=== PATIENT | female | born 1935 | race Caucasian/White ===

== ENCOUNTER → 2016-11-24 | Outpatient (CLI) | payer MEDICARE ==
--- NOTE | 2016-11-24 19:44 | XR ---
EXAMINATION TYPE: XR wrist complete RT DATE OF EXAM: 11/24/2016 COMPARISON: NONE HISTORY: Pain TECHNIQUE: 4 views FINDINGS: There is a nondisplaced transverse fracture of the distal radial metaphysis. There is very slight impaction. There is no dislocation. There is moderately severe osteoarthritis at the first car pometacarpal joint. Carpal bones are intact. There is calcification of the triangular cartilage. IMPRESSION: Acute transverse fracture distal radius.
== END | disposition home or self-care (01) ==
LOC: RADXRMAIN 18:57
PROVIDERS: ATTEND Internal Medicine
DX: S52.501A Unspecified fracture of the lower end of right radius, initial encounter for closed fracture (principal)

== ENCOUNTER 2017-06-12 03:17 | Inpatient (IN) | payer MEDICARE ==
[2017-06-12] MEDS ORDERED: PANTOPRAZOLE 40 MG/10 ML VIAL IVP STA (03:24)
--- NOTE | 2017-06-12 03:27 | ED ---
General Adult HPI - General Stated complaint: GI Bleed Time Seen by Provider: 06/12/17 03:19 Source: patient, family, EMS, RN notes reviewed Mode of arrival: EMS Limitations: altered mental status (Poor historian) - History of Present Illness Initial comments: Patient is a pleasant 81-year-old female presenting to the emergency department with black coffee-ground emesis. Patient has had several episodes over the past hour. There was some blood streaks as well. Patient reportedly did have some black bowel movements earlier today. No abdominal pain. No history of similar symptoms previously. Patient does not take blood thinners. No history of significant previous alcohol use. - Related Data Home Medications Medication Instructions Recorded Confirmed Aspirin EC [Ecotrin Low Dose] 81 mg PO DAILY 04/06/14 05/26/15 Hydrochlorothiazide 25 mg PO DAILY 04/06/14 05/26/15 Levothyroxine Sodium [Synthroid] 50 mcg PO DAILY 04/06/14 05/26/15 Metoprolol Tartrate [Lopressor] 100 mg PO DAILY 04/06/14 05/26/15 Multivitamins, Thera [Multivitamin 1 tab PO DAILY 04/06/14 05/26/15 (formulary)] Omeprazole [PriLOSEC] 20 mg PO AC-BID 04/06/14 05/26/15 Simvastatin [Zocor] 20 mg PO HS 04/06/14 05/26/15 Donepezil [Aricept] 10 mg PO HS 05/26/15 05/26/15 Previous Rx's Medication Instructions Recorded Cephalexin [Keflex] 500 mg PO Q12HR #10 cap 06/02/15 traMADol HCl [Ultram] 50 mg PO Q6H PRN #30 tab 06/02/15 Allergies Allergy/AdvReac Type Severity Reaction Status Date / Time Sulfa (Sulfonamide Allergy Unknown Verified 05/26/15 12:07 Antibiotics) Childhood Review of Systems ROS Statement: Those systems with pertinent positive or pertinent negative responses have been documented in the HPI. ROS Other: All systems not noted in ROS Statement are negative. Constitutional: Denies: fever Eyes: Denies: eye pain ENT: Denies: ear pain Respiratory: Denies: cough Cardiovascular: Denies: chest pain Endocrine: Denies: fatigue Gastrointestinal: Reports: nausea, vomiting, hematemesis. Denies: abdominal pain Genitourinary: Denies: dysuria Musculoskeletal: Denies: back pain Skin: Denies: rash Neurological: Denies: weakness Past Medical History Past Medical History: Hypertension, Thyroid Disorder Additional Past Medical History / Comment(s): "short term memory loss" History of Any Multi-Drug Resistant Organisms: None Reported Past Surgical History: Bowel Resection, Breast Surgery, Hysterectomy, Joint Replacement Past Anesthesia/Blood Transfusion Reactions: No Reported Reaction Past Psychological History: No Psychological Hx Reported Smoking Status: Never smoker Past Alcohol Use History: None Reported Past Drug Use History: None Reported - Past Family History Mother Family Medical History: CVA/TIA Father Family Medical History: Myocardial Infarction ([place]) General Exam Limitations: no limitations General appearance: alert, in no apparent distress Head exam: Present: atraumatic Eye exam: Present: normal appearance, PERRL ENT exam: Present: normal oropharynx Neck exam: Present: normal inspection Respiratory exam: Present: normal lung sounds bilaterally Cardiovascular Exam: Present: regular rate, normal rhythm GI/Abdominal exam: Present: soft. Absent: tenderness Extremities exam: Present: normal inspection Neurological exam: Present: alert Psychiatric exam: Present: normal affect, normal mood Skin exam: Present: normal color Course Vital Signs 06/12/17 03:25 Temperature 97.2 F L Pulse Rate 81 Respiratory 18 Rate Blood Pressure 101/67 O2 Sat by Pulse 95 Oximetry Medical Decision Making - Medical Decision Making Patient and family updated. Case was discussed with Dr. Crenshaw, who will admit for Dr. Sonu le. Patient has previously seen Dr. Cahmberlain and she will be placed on consult. - Lab Data Result diagrams: 06/12/17 03:38 06/12/17 03:38 Lab Results 06/12/17 06/12/17 06/12/17 Range/Units 03:38 03:38 03:38 WBC 9.7 (3.8-10.6) k/uL RBC 3.39 L (3.80-5.40) m/uL Hgb 9.9 L (11.4-16.0) gm/dL Hct 32.4 L (34.0-46.0) % MCV 95.3 (80.0-100.0) fL MCH 29.1 (25.0-35.0) pg MCHC 30.5 L (31.0-37.0) g/dL RDW 13.2 (11.5-15.5) % Plt Count 318 (150-450) k/uL Neutrophils % 76 % Lymphocytes % 17 % Monocytes % 5 % Eosinophils % 1 % Basophils % 0 % Neutrophils # 7.3 (1.3-7.7) k/uL Lymphocytes # 1.7 (1.0-4.8) k/uL Monocytes # 0.5 (0-1.0) k/uL Eosinophils # 0.1 (0-0.7) k/uL Basophils # 0.0 (0-0.2) k/uL PT 12.9 H (9.0-12.0) sec INR 1.4 H (<1.2) APTT 20.4 L (22.0-30.0) sec Sodium 140 (137-145) mmol/L Potassium 5.0 (3.5-5.1) mmol/L Chloride 101 (98-107) mmol/L Carbon Dioxide 28 (22-30) mmol/L Anion Gap 11 mmol/L BUN 47 H (7-17) mg/dL Creatinine 0.91 (0.52-1.04) mg/dL Est GFR (MDRD) Af Amer >60 (>60 ml/min/1.73 sqM) Est GFR (MDRD) Non-Af 59 (>60 ml/min/1.73 sqM) Glucose 125 H (74-99) mg/dL Calcium 11.7 H (8.4-10.2) mg/dL Total Bilirubin 1.1 (0.2-1.3) mg/dL AST 35 (14-36) U/L ALT 19 (9-52) U/L Alkaline Phosphatase 108 (38-126) U/L Total Protein 5.7 L (6.3-8.2) g/dL Albumin 2.8 L (3.5-5.0) g/dL Disposition Clinical Impression: GI hemorrhage Disposition: ADMITTED IP TO THIS [facility] Referrals: Trena Brink MD [Primary Care Provider] - 1-2 days Decision Time: 05:38
[2017-06-12 03:47] LABS: Basophils % (A) 0 %; Eosinophils # (A) 0.1 k/uL (0-0.7); Eosinophils % (A) 1 %; HCT 32.4 % (34.0-46.0); HGB 9.9 gm/dL (11.4-16.0); Lymphocytes # (A) 1.7 k/uL (1.0-4.8); Lymphocytes % (A) 17 %; MCH 29.1 pg (25.0-35.0); MCHC 30.5 g/dL (31.0-37.0); MCV 95.3 fL (80.0-100.0); Mean Platelet Volume 7.5; Monocytes # (A) 0.5 k/uL (0-1.0); Monocytes % (A) 5 %; Neutrophils # (A) 7.3 k/uL (1.3-7.7); Neutrophils % (A) 76 %; Platelet Count 318 k/uL (150-450); RBC 3.39 m/uL (3.80-5.40); RDW 13.2 % (11.5-15.5); WBC 9.7 k/uL (3.8-10.6)
[2017-06-12 03:57] LABS: ALT 19 U/L (9-52); AST 35 U/L (14-36); Albumin 2.8 g/dL (3.5-5.0); Alkaline Phosphatase 108 U/L (38-126); Anion Gap 11 mmol/L; Blood Urea Nitrogen 47 mg/dL (7-17); Calcium 11.7 mg/dL (8.4-10.2); Carbon Dioxide 28 mmol/L (22-30); Chloride 101 mmol/L (98-107); Glucose 125 mg/dL (74-99); Sodium 140 mmol/L (137-145); Total Bilirubin 1.1 mg/dL (0.2-1.3); Total Protein 5.7 g/dL (6.3-8.2)
[2017-06-12 04:07] LABS: INR 1.4 (<1.2); Prothrombin Time 12.9 sec (9.0-12.0)
[2017-06-12 04:16] LABS: Partial Thromboplastin Time 20.4 sec (22.0-30.0)
[2017-06-12] MEDS ORDERED: NALOXONE 0.4 MG/ML 1 ML VIAL IV PRN (05:38)
[2017-06-12] MEDS ORDERED: PANTOPRAZOLE 40 MG/10 ML VIAL IV SCH (09:00)
--- NOTE | 2017-06-12 09:13 | P.CONS ---
History of Present Illness - Reason for Consult Consult date: 06/12/17 Coffee-ground emesis GI bleed Requesting physician: Lico Crenshaw - Chief Complaint coffee ground emesis - History of Present Illness 81-year-old female with a history of cryptogenic cirrhosis confirmed per liver biopsy when cholecystectomy was performed, pancreatitis secondary to choledocholithiasis, cholecystectomy, hypertension, exploratory laparotomy following colonoscopy, and short-term memory loss. History obtained from patient's daughter secondary to her short-term memory loss. According to daughter patient has been experiencing upper abdominal left upper quadrant pain for a few weeks. Apparently she fell a few weeks ago and since then has experienced soreness in her upper abdomen. She is scheduled to have an ultrasound of the abdomen to look at her spleen next week however early this morning around 2 AM she had increased nausea followed by a few episodes of coffee-ground emesis and black colored bowel movements. No recurrence of coffee -ground emesis or melena since admission. No history of GI bleed. Possible remote ulcer disease more than 20 years ago. No NSAIDs or alcohol. Takes a baby aspirin daily. Admission hemoglobin 9.9. MCV 95. Platelet 318. White count 9.7. INR 1.4. Total bilirubin 1.1. AST 35. ALT 19. Alkaline phosphatase 108. Calcium 11.7. Albumin 2.8. Review of Systems Constitutional: Denies fever, chills, sweats, weight gain, or loss. History of short-term memory loss. HEENT: Negative for migraines, blurred vision or loss, earaches, drainage, tinnitus, oral mucosal lesions, dysphagia, or odynophagia. CARDIAC: Hypertension. Negative for chest pain, arrhythmias, or palpitation. RESPIRATORY: Negative for shortness of breath, hemoptysis, cough, or sputum production. GI: See HPI for pertinent findings. : Negative for hematuria, urgency, frequency, polyuria, or dysuria. GYNc: Denies possibility of . Negative vaginal discharge. MUSCULOSKELETAL: Negative for muscle aches, swelling, arthritis, and arthralgias. NEUROLOGIC: Negative for stroke or TIA. ENDOCRINE: Negative for thyroid problems. SKIN: Negative for rash or itching. PSYCHIATRIC: Negative history for depression and anxiety Past Medical History Past Medical History: Hypertension, Thyroid Disorder Additional Past Medical History / Comment(s): "short term memory loss" History of Any Multi-Drug Resistant Organisms: None Reported Past Surgical History: Bowel Resection, Breast Surgery, Hysterectomy, Joint Replacement Past Anesthesia/Blood Transfusion Reactions: No Reported Reaction Past Psychological History: No Psychological Hx Reported Smoking Status: Never smoker Past Alcohol Use History: None Reported Past Drug Use History: None Reported - Past Family History Mother Family Medical History: CVA/TIA Father Family Medical History: Myocardial Infarction ([place]) Medications and Allergies Home Medications Medication Instructions Recorded Confirmed Type Aspirin EC [Ecotrin Low Dose] 81 mg PO DAILY 04/06/14 06/12/17 History Levothyroxine Sodium [Synthroid] 50 mcg PO DAILY 04/06/14 06/12/17 History Metoprolol Tartrate [Lopressor] 100 mg PO DAILY 04/06/14 06/12/17 History Multivitamins, Thera [Multivitamin 1 tab PO DAILY 04/06/14 06/12/17 History (formulary)] Donepezil [Aricept] 10 mg PO HS 05/26/15 06/12/17 History Cholecalciferol (Vitamin D3) 2,000 unit PO DAILY 06/12/17 06/12/17 History [Vitamin D3] Lisinopril [Zestril] 20 mg PO HS 06/12/17 06/12/17 History Allergies Allergy/AdvReac Type Severity Reaction Status Date / Time Sulfa (Sulfonamide Allergy Unknown Verified 06/12/17 06:45 Antibiotics) Childhood Physical Exam Vitals: Vital Signs Temp Pulse Pulse Resp BP BP Pulse Ox 06/12/17 07:00 97.5 F L 85 20 146/50 95 06/12/17 06:00 97.5 F L 75 20 112/56 97 06/12/17 05:29 97.5 F L 88 18 112/65 06/12/17 03:25 97.2 F L 81 18 101/67 95 Intake and Output 06/11/17 06/12/17 06/12/17 22:59 06:59 14:59 Other: Weight 84.822 kg General appearance: The patient is alert, oriented, in no acute distress. HET: Head is normocephalic and atraumatic. Pupils are equal and reactive. Oropharynx is clear without lesions. Neck: Supple without lymphadenopathy. Trachea midline. Heart: S1 S2. Regular rate and rhythm. Lungs: No crackles or wheezes are heard. Abdomen: Soft, tenderness in the midepigastrium and left upper quadrant, nondistended with bowel sounds. No peritoneal signs. No palpable organomegaly or masses. Extremities: Normal skin color and turgor. No cyanosis, rash, ulceration, clubbing, or edema. Radial and pedal pulses are 2/4 bilaterally. Neurological: No focal deficits. Strength and sensation are grossly intact. Results CBC & Chem 7: 06/12/17 03:38 06/12/17 03:38 Labs: Abnormal Lab Results - Last 24 Hours (Table) 06/12/17 06/12/17 06/12/17 Range/Units 03:38 03:38 03:38 RBC 3.39 L (3.80-5.40) m/uL Hgb 9.9 L (11.4-16.0) gm/dL Hct 32.4 L (34.0-46.0) % MCHC 30.5 L (31.0-37.0) g/dL PT 12.9 H (9.0-12.0) sec INR 1.4 H (<1.2) APTT 20.4 L (22.0-30.0) sec BUN 47 H (7-17) mg/dL Glucose 125 H (74-99) mg/dL Calcium 11.7 H (8.4-10.2) mg/dL Total Protein 5.7 L (6.3-8.2) g/dL Albumin 2.8 L (3.5-5.0) g/dL Assessment and Plan (1) Acute GI bleeding Narrative/Plan: 81-year-old female presents with 2 week history of midepigastric left upper quadrant abdominal pain with acute onset of coffee-ground emesis and melena that developed 2 AM this morning with underlying history of cryptogenic cirrhosis possible peptic ulcer disease possible esophageal varices. Current Visit: Yes Status: Acute Code(s): K92.2 - GASTROINTESTINAL HEMORRHAGE, UNSPECIFIED SNOMED Code(s): 18075811 (2) Coffee ground emesis Current Visit: Yes Status: Acute Code(s): K92.0 - HEMATEMESIS SNOMED Code( s): 245640720 (3) Melena Current Visit: Yes Status: Acute Code(s): K92.1 - MELENA SNOMED Code(s): 6022967 (4) Cryptogenic cirrhosis of liver Current Visit: Yes Status: Acute Code(s): K74.69 - OTHER CIRRHOSIS OF LIVER SNOMED Code(s): 61194291 (5) Coagulopathy Current Visit: Yes Status: Acute Code(s): D68.9 - COAGULATION DEFECT, UNSPECIFIED SNOMED Code(s): 54841377 (6) Anemia Current Visit: Yes Status: Acute Code(s): D64.9 - ANEMIA, UNSPECIFIED SNOMED Code(s): 324181161 (7) Acute blood loss anemia Current Visit: Yes Status: Acute Code(s): D62 - ACUTE POSTHEMORRHAGIC ANEMIA SNOMED Code(s): 261156348 Plan: 1. We'll proceed with EGD evaluation today. Nothing by mouth except medications. 2. Protonix 40 mg IV daily. 3. Hold baby aspirin. 4. CBC monitoring. 5. We'll check AFP marker as part of surveillance of known cirrhosis. 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 The patient has indicated understanding and acceptance of the risks and procedures discussed. Thank you for this kind referral and the opportunity to participate in the care of your patient. This consultation was discussed with Dr. Umana. The impression and plan of care have been directed as dictated.
[2017-06-12] MEDS ORDERED: LIDOCAINE 1% INJ 10MG/ML (20 ML MDV) ONE (14:28)
[2017-06-12] MEDS ORDERED: ONDANSETRON 4 MG/2 ML VIAL ONE (14:28)
[2017-06-12] MEDS ORDERED: PROPOFOL 10 MG/ML 20 ML VIAL IV ONE (14:28)
[2017-06-12] MEDS ORDERED: fentaNYL (PF) 50 MCG/ML 2 ML AMP ONE (14:28)
[2017-06-12] MEDS ORDERED: LACTATED RINGERS 1,000 ML IV ONE (14:28)
--- NOTE | 2017-06-12 14:46 | P.HPIM ---
History of Present Illness H&P Date: 06/12/17 Chief Complaint: Upper GI bleed. This is an 81-year-old female one of Dr. Brink with a previous medical history significant for critical aortic cirrhosis of the liver, has been under the care of gastroneurology Dr. Chamberlain and she had in the past upper endoscopy as well as colonoscopy about 2 years ago, patient was seen in the office about last week and she was supposed to go for an ultrasound of the spleen due to her left upper quadrant pain, patient also has a history of hypertension and hypertensive cardio vascular disease, hypothyroidism, history of vascular dementia, history of osteoarthritis, patient apparently was doing fine up until yesterday when she had a cream of chicken soup, she went to bed and woke up at around 2:00 in the morning complaining of increased burping associated with some mid abdominal epigastric discomfort patient ended up going to the bathroom later on in the morning hours and she had vomited a what appears to be dark and coffee-ground emesis and she also has been having some tarry black stool for the past few days as well, patient ended up coming to the ER at [facility] she was found to have a lower hemoglobin and she was admitted to the hospital for an acute upper GI bleed she was seen in consultation by gastroenterology she is scheduled to go for EGD later on today. Review of Systems Constitutional: Reports weakness, Denies anorexia, Denies chronic headaches, Denies chronic pain, Denies fever, Denies lethargy, Denies weight gain, Denies weight loss Eyes: denies blurred vision, denies bulging eye, denies decreased vision, denies diplopia Ears: bilateral: decreased hearing Ears, nose, mouth and throat: Denies dysphagia, Denies neck lump, Denies sore throat Cardiovascular: Reports high blood pressure, Denies chest pain, Denies decreased exercise tolerance, Denies dyspnea on exertion, Denies phlebitis, Denies rapid heart beat, Denies shortness of breath, Denies syncope Respiratory: Denies congestion, Denies cough, Denies cough with sputum, Denies home oxygen, Denies sleep apnea, Denies snoring, Denies wheezing Gastrointestinal: Reports abdominal pain, Reports belching, Reports bloating, Reports change in bowel habits, Reports coffee ground emesis, Reports heartburn , Reports hematemesis, Reports melena, Reports nausea, Reports vomiting Genitourinary: Denies dysuria, Denies hematuria Menstruation: Reports post hysterectomy, Reports postmenopausal Musculoskeletal: Reports atrophy Musculoskeletal: absent: ankle pain, ankle stiffness, ankle swelling, elbow pain , elbow stiffness, elbow swelling, foot pain, foot stiffness, foot swelling, hand pain, hand stiffness, hand swelling, hip pain, hip stiffness, hip swelling , knee pain, knee stiffness, knee swelling, shoulder pain, shoulder stiffness, shoulder swelling, wrist pain, wrist stiffness, wrist swelling Integumentary: Denies pruritus, Denies rash Neurological: Reports memory loss, Denies numbness, Denies weakness Psychiatric: Denies anxiety, Denies depression Endocrine: Denies fatigue, Denies weight change Past Medical History Past Medical History: Dementia, GERD/Reflux, GI Bleed, Hyperlipidemia, Hypertension, Osteoarthritis (OA), Thyroid Disorder Additional Past Medical History / Comment(s): "short term memory loss", cryptogenic cirrhosis, hypertension and hypertensive cardio vascular disease, hyperlipidemia, hypothyroidism, vascular dementia, osteoarthritis. History of Any Multi-Drug Resistant Organisms: None Reported Past Surgical History: Bowel Resection, Breast Surgery, Hysterectomy, Joint Replacement Additional Past Surgical History / Comment(s): Plan after cataract surgery, laparoscopic cholecystectomy, left breast nipple surgery, total abdominal hysterectomy and bilateral sopping oophorectomy, exploratory laparotomy and partial colectomy after colonoscopy. Past Anesthesia/Blood Transfusion Reactions: No Reported Reaction Past Psychological History: No Psychological Hx Reported Smoking Status: Never smoker Past Alcohol Use History: None Reported Past Drug Use History: None Reported - Past Family History Mother Family Medical History: CVA/TIA (mother at age 76 from CVA.) Father Family Medical History: Myocardial Infarction ([place]) (father at age of 51 from myocardial infarction) Brother(s) Family Medical History: COPD (patient had 2 brothers one of them from COPD. ) Sister(s) Family Medical History: Cancer (and she had breast cancer.), Coronary Artery Disease (CAD) (patient had one sister who from CAD.) Daughter(s) Family Medical History: No Reported History (patient has 4 daughters no major medical problems.) Son(s) Family Medical History: No Reported History (patient has 3 sons no major medical problems.) Medications and Allergies Home Medications Medication Instructions Recorded Confirmed Type Aspirin EC [Ecotrin Low Dose] 81 mg PO DAILY 04/06/14 06/12/17 History Levothyroxine Sodium [Synthroid] 50 mcg PO DAILY 04/06/14 06/12/17 History Metoprolol Tartrate [Lopressor] 100 mg PO DAILY 04/06/14 06/12/17 History Multivitamins, Thera [Multivitamin 1 tab PO DAILY 04/06/14 06/12/17 History (formulary)] Donepezil [Aricept] 10 mg PO HS 05/26/15 06/12/17 History Cholecalciferol (Vitamin D3) 2,000 unit PO DAILY 06/12/17 06/12/17 History [Vitamin D3] Lisinopril [Zestril] 20 mg PO HS 06/12/17 06/12/17 History Allergies Allergy/AdvReac Type Severity Reaction Status Date / Time Sulfa (Sulfonamide Allergy Unknown Verified 06/12/17 06:45 Antibiotics) Childhood Physical Exam Vitals: Vital Signs Temp Pulse Pulse Resp BP BP Pulse Ox 06/12/17 07:00 97.5 F L 85 20 146/50 95 06/12/17 06:00 97.5 F L 75 20 112/56 97 06/12/17 05:29 97.5 F L 88 18 112/65 06/12/17 03:25 97.2 F L 81 18 101/67 95 Intake and Output 06/11/17 06/12/17 06/12/17 22:59 06:59 14:59 Intake Total 0 Balance 0 Intake: Oral 0 Other: Weight 84.822 kg - Constitutional General appearance: average body habitus, no acute distress - EENT Eyes: anicteric sclerae, EOMI, PERRLA, no ptosis, no scleral icterus, normal appearance ENT: hard of hearing, NA/AT, normal oropharynx, no thrush Ears: bilateral: normal - Neck Neck: no lymphadenopathy, normal ROM, no rigidity, no stridor, no thyromegaly Carotids: bilateral: upstroke normal Thyroid: bilateral: normal size - Respiratory Respiratory: bilateral: diminished, negative: dullness, rales, rhonchi, wheezing , prolonged expiration - Cardiovascular Rhythm: regular Heart sounds: normal: S1, S2 Abnormal Heart Sounds: systolic murmur, no S3 Gallop, no S4 Gallop - Gastrointestinal General gastrointestinal: normal bowel sounds, soft, tenderness (in the mid epigastric area as well as left lower quadrant.), no umbilical hernia, no ventral hernia - Integumentary Integumentary: normal, normal turgor, pale - Neurologic Neurologic: CNII-XII intact - Musculoskeletal Musculoskeletal: generalized weakness, strength equal bilaterally - Psychiatric Psychiatric: A&O x's 3, appropriate affect, no intact judgment & insight Results CBC & Chem 7: 06/12/17 03:38 06/12/17 03:38 Labs: Abnormal Lab Results - Last 24 Hours (Table) 06/12/17 06/12/17 06/12/17 Range/Units 03:38 03:38 03:38 RBC 3.39 L (3.80-5.40) m/uL Hgb 9.9 L (11.4-16.0) gm/dL Hct 32.4 L (34.0-46.0) % MCHC 30.5 L (31.0-37.0) g/dL PT 12.9 H (9.0-12.0) sec INR 1.4 H (<1.2) APTT 20.4 L (22.0-30.0) sec BUN 47 H (7-17) mg/dL Glucose 125 H (74-99) mg/dL Calcium 11.7 H (8.4-10.2) mg/dL Total Protein 5.7 L (6.3-8.2) g/dL Albumin 2.8 L (3.5-5.0) g/dL Thrombosis Risk Factor Assmnt - DVT/VTE Prophylaxis DVT/VTE Prophylaxis: Mechanical Prophylaxis ordered Assessment and Plan Assessment: Assessment and plan: 1. Acute upper GI bleed could be related to esophageal varices versus Sonya- Hyde tear. Patient will be kept on nothing per mouth, continue patient on Protonix 40 mg IV push every 12 hours, patient is to go for EGD for further evaluation, CBC every 6 hours for the next 24 hours, transfuse for hemoglobin less than 8. 2. Hypertension and hypertensive cardiovascular disease. Continue metoprolol 100 mg orally once every day and Lisinopril 20 mg orally daily. 3. Hypothyroidism. Continue patient on Synthroid 50 mcg orally daily. 4. Cryptogenic cirrhosis of the liver. Under the care of GI. 5. Osteoarthritis. Stable at this time. 6. Vascular dementia. Currently on Aricept 10 mg orally once every day. 7. DVT prophylaxis. Bilateral knee-high HAJA hose. 8. GI prophylaxis. Continue with Protonix. 9. Admit to inpatient. Estimated length of stay 2 midnights. 10. Patient is full code.
--- NOTE | 2017-06-12 14:47 | P.PCN ---
Date of Procedure: 06/12/17 Procedure(s) Performed: BRIEF HISTORY: Patient is a 81-year-old, pleasant, female, admitted to the hospital with multiple episodes of coffee-ground emesis since 2 AM this morning. Hemoglobin was 9.9 g/dL. She is hence scheduled for an upper endoscopy to evaluate further. PROCEDURE PERFORMED: Esophagogastroduodenoscopy with esophageal variceal ligation. PREOPERATIVE DIAGNOSIS:. Acute upper GI bleed IV sedation per anesthesia. PROCEDURE: After informed consent was obtained, the patient was brought into the endoscopy unit. IV sedation was administered by Anesthesia under continuous monitoring. Initially the Olympus GIF-140 video endoscope was inserted into the mouth. Esophagus intubated without any difficulty. It was gradually advanced into the stomach and duodenum and carefully examined. The bulb and the second part of the duodenum appeared normal. The scope at this time was withdrawn to the stomach, adequately insufflated with air, and upon careful examination, mucosa of the antrum, body, cardia and the fundus appeared normal. There were large clots noted in the fundus of the stomach that we thoroughly irrigated. No gastric varices identified. The scope was then withdrawn into the esophagus. The GE junction was located at 39 cm from the incisors. There were large distal esophageal varices identified with no active bleeding. At this time the scope was removed esophageal variceal ligation equipment was introduced onto the tip of the scope and esophagus intubated without any difficulty. It was gently advanced into the distal esophagus. Using suction total of 5 bands were deployed in a spiral fashion starting distally into the mid esophagus. The proximal esophagus appeared normal. There were no erosions or ulcerations seen and the patient tolerated the procedure well. IMPRESSION: 1. Large mid and distal esophageal varices with no active bleeding status post variceal ligation. 2. Blood with clots and the fundus of the stomach but no gastric varices seen. RECOMMENDATIONS: The findings of this examination were discussed with the patient as well as her family. She will be maintained on a clear liquid diet. IV Sandostatin drip will be started. She will be transferred to the intensive care unit for closer monitoring.
[2017-06-12 16:41] LABS: Basophils % (A) 0 %; Eosinophils % (A) 0 %; HCT 30.5 % (34.0-46.0); HGB 9.4 gm/dL (11.4-16.0); Hypochromasia Slight; Lymphocytes # (A) 1.2 k/uL (1.0-4.8); Lymphocytes % (A) 11 %; MCH 29.3 pg (25.0-35.0); MCHC 30.7 g/dL (31.0-37.0); MCV 95.4 fL (80.0-100.0); Mean Platelet Volume 7.5; Monocytes # (A) 0.4 k/uL (0-1.0); Monocytes % (A) 4 %; Neutrophils # (A) 8.8 k/uL (1.3-7.7); Neutrophils % (A) 83 %; Platelet Count 287 k/uL (150-450); RDW 13.2 % (11.5-15.5); WBC 10.6 k/uL (3.8-10.6)
[2017-06-12 18:53] LABS: Glucose,Whole Blood 123 mg/dL (75-99)
[2017-06-12] MEDS: OCTREOTIDE 200 MCG in SODIUM CHLORIDE 0.9% 100 ML IV SCH ×2 (20:00→23:33)
[2017-06-12] MEDS: SODIUM CHLORIDE 0.9% 1,000 ML IV SCH ×2 (20:01→20:02)
[2017-06-12] MEDS: LISINOPRIL 20 MG TAB PO SCH (21:03)
[2017-06-12] MEDS: LEVOFLOXACIN 500MG-D5W PMX 500 MG in DEXTROSE/WATER 1 100ML.BAG IVPB SCH (21:03)
[2017-06-12] MEDS: DONEPEZIL 10 MG TAB PO SCH (21:03)
[2017-06-12] MEDS: PANTOPRAZOLE 40 MG/10 ML VIAL IVP SCH (21:57)
[2017-06-12] MEDS: ACETAMINOPHEN TAB 325 MG TAB PO PRN (23:39)
[2017-06-13] MEDS: OCTREOTIDE 200 MCG in SODIUM CHLORIDE 0.9% 100 ML IV SCH ×6 (03:30→20:17)
[2017-06-13] MEDS: SODIUM CHLORIDE 0.9% 1,000 ML IV SCH ×4 (03:31→20:56)
[2017-06-13 05:48] LABS: Basophils % (A) 0 %; Eosinophils % (A) 0 %; HCT 25.8 % (34.0-46.0); Hypochromasia Slight; Lymphocytes # (A) 1.2 k/uL (1.0-4.8); Lymphocytes % (A) 14 %; MCH 29.4 pg (25.0-35.0); MCHC 30.7 g/dL (31.0-37.0); MCV 95.6 fL (80.0-100.0); Mean Platelet Volume 7.5; Monocytes # (A) 0.5 k/uL (0-1.0); Monocytes % (A) 6 %; Neutrophils # (A) 6.4 k/uL (1.3-7.7); Neutrophils % (A) 77 %; Platelet Count 224 k/uL (150-450); RBC 2.69 m/uL (3.80-5.40); RDW 13.2 % (11.5-15.5); WBC 8.3 k/uL (3.8-10.6)
[2017-06-13 05:56] LABS: HGB 7.9 gm/dL (11.4-16.0)
[2017-06-13 06:04] LABS: Albumin 2.5 g/dL (3.5-5.0); Calcium 9.6 mg/dL (8.4-10.2); Potassium 4.6 mmol/L (3.5-5.1); Total Bilirubin 0.7 mg/dL (0.2-1.3); Total Protein 5.3 g/dL (6.3-8.2)
[2017-06-13] MEDS: LEVOTHYROXINE 50 MCG TAB PO SCH (06:36)
[2017-06-13] MEDS: METOPROLOL TARTRATE 50 MG TAB PO SCH (08:16)
[2017-06-13] MEDS: PANTOPRAZOLE 40 MG/10 ML VIAL IVP SCH (08:16)
--- NOTE | 2017-06-13 10:48 | P.PN ---
Subjective Progress Note Date: 06/13/17 Principal diagnosis: GI bleed Patient continued to be at baseline mental status garvey she is alert and oriented 2-3 family at the bedside including and daughter who feels that she's back at baseline. No major events reported by nursing staff. Patient is denying chest pain, shortness breath, nausea, vomiting, dumping or dizziness Objective - Vital Signs Vital signs: Vital Signs Temp 97.9 F 06/13/17 08:00 Pulse 68 06/13/17 10:00 Resp 20 06/13/17 10:00 BP 139/43 06/13/17 10:00 Pulse Ox 96 06/13/17 10:00 Intake & Output 06/12/17 06/13/17 06/13/17 18:59 06:59 18:59 Intake Total 200 2201.376 941.358 Output Total 575 Balance 200 1626.376 941.358 Weight 85.1 kg Intake: IV 200 1572.0 581.0 Octreotide 200 mcg In 252.0 101.0 Sodium Chloride 0.9% 100 ml @ 50 MCG/HR 25.25 mls/ hr IV .Q4H [facility] Rx#: [id number] Sodium Chloride 0.9% 1, 1320 480 000 ml @ 120 mls/hr IV . Q8H20M [facility] Rx#:[id number] Intake, IV Titration 289.376 120.358 Amount Levofloxacin 500Mg-D5w 100 Pmx 500 mg In Dextrose/ Water 1 100ml.bag @ 100 mls/hr IVPB Q24H [facility] Rx#: [id number] Octreotide 200 mcg In 189.376 120.358 Sodium Chloride 0.9% 100 ml @ 50 MCG/HR 25.25 mls/ hr IV .Q4H [facility] Rx#: [id number] Oral 0 340 240 Output: Urine 575 Other: Voiding Method Toilet Bedside Commode Bedside Commode # Voids 3 1 1 # Bowel Movements 1 1 - Exam Gen. and have stated age in no acute distress Lungs diminished bilaterally Heart normal S1-S2 Abdomen soft no tenderness positive bowel sounds in all 4 quadrants Skin no new rash Lower extremity positive pulses bilaterally - Labs CBC & Chem 7: 06/13/17 04:52 06/13/17 04:52 Labs: Abnormal Lab Results - Last 24 Hours (Table) 06/12/17 06/12/17 06/13/17 Range/Units 16:19 18:30 04:52 RBC 3.20 L 2.69 L (3.80-5.40) m/uL Hgb 9.4 L 7.9 L D (11.4-16.0) gm/dL Hct 30.5 L 25.8 L (34.0-46.0) % MCHC 30.7 L 30.7 L (31.0-37.0) g/dL Neutrophils # 8.8 H (1.3-7.7) k/uL BUN (7-17) mg/dL Creatinine (0.52-1.04) mg/dL Glucose (74-99) mg/dL POC Glucose (mg/dL) 123 H (75-99) mg/dL AST (14-36) U/L Total Protein (6.3-8.2) g/dL Albumin (3.5-5.0) g/dL 06/13/17 Range/Units 04:52 RBC (3.80-5.40) m/uL Hgb (11.4-16.0) gm/dL Hct (34.0-46.0) % MCHC (31.0-37.0) g/dL Neutrophils # (1.3-7.7) k/uL BUN 62 H (7-17) mg/dL Creatinine 1.10 H (0.52-1.04) mg/dL Glucose 124 H (74-99) mg/dL POC Glucose (mg/dL) (75-99) mg/dL AST 37 H (14-36) U/L Total Protein 5.3 L (6.3-8.2) g/dL Albumin 2.5 L (3.5-5.0) g/dL Assessment and Plan Assessment: 1. Large med and distal esophageal varices with no active bleeding status post variceal ligation. Patient was started on Sandostatin infusion and currently on Protonix drip we would continue with the intensive care unit setting we'll continue on the drips per GI recommendation. We'll monitor vital signs closely and repeat CBC in the morning. If patient's continued to be stable will consider transferring patient stool general medical floor in the morning. Plan discussed with the patient and her family at the bedside. 2. Hypertension. Controlled with continual blood pressure medication with holding parameters. 3. Hypothyroidism. Continue Synthroid. 4. Cirrhosis of the liver. We'll continue evidence based medicine and follow- up with GI recommendation. 5. Discharge planning based on clinical progress
[2017-06-13] MEDS: ACETAMINOPHEN TAB 325 MG TAB PO PRN ×2 (11:34→20:56)
--- NOTE | 2017-06-13 11:50 | P.CNPUL ---
History of Present Illness Consult date: 06/13/17 Reason for consult: other (Acute upper GI bleeding) Chief complaint: Vomiting blood History of present illness: This is an 81-year-old female with history of cryptogenic liver cirrhosis, previous liver biopsy confirming this diagnosis. History of multiple comorbidities including hypertension, hypothyroidism, dementia, history of cholelithiasis and history of pancreatitis, patient was admitted yesterday through the emergency room with a few weeks history of left upper quadrant pain and abdominal soreness. Patient was scheduled to have ultrasound of the abdomen on outpatient basis, however the patient presented in the morning of with nausea vomiting and coffee-ground emesis. She also noted black- colored bowel movements. Patient had no previous history of peptic ulcer disease, no previous history of GI bleeding. She is not taking any alcohol and she is not on any nonsteroidal anti-inflammatory drugs. She does take one baby aspirin daily. Patient was seen yesterday by gastroenterology on consultation, underwent EGD, and she was found to have a large mid and distal esophageal varices with no active bleeding. Blood clots were noted in the fundus of the stomach, patient underwent variceal ligation. Postoperatively patient was admitted to the ICU, and I was asked to see her on consultation. Hemoglobin on admission was 9.9, hemoglobin today is 7.9, patient did not require any blood transfusions. The patient herself is known to have history of dementia, not much history could be obtained from the patient, however most of it was obtained from the chart. Review of Systems Patient is a poor historian, known to have history of dementia, could not remember the events of what happened and how she ended up in the hospital. ROS unobtainable: due to mental status Past Medical History Past Medical History: Dementia, GERD/Reflux, GI Bleed, Hyperlipidemia, Hypertension, Osteoarthritis (OA), Thyroid Disorder Additional Past Medical History / Comment(s): "short term memory loss", cryptogenic cirrhosis, hypertension and hypertensive cardio vascular disease, hyperlipidemia, hypothyroidism, vascular dementia, osteoarthritis. History of Any Multi-Drug Resistant Organisms: None Reported Past Surgical History: Bowel Resection, Breast Surgery, Hysterectomy, Joint Replacement Additional Past Surgical History / Comment(s): Plan after cataract surgery, laparoscopic cholecystectomy, left breast nipple surgery, total abdominal hysterectomy and bilateral sopping oophorectomy, exploratory laparotomy and partial colectomy after colonoscopy. Past Anesthesia/Blood Transfusion Reactions: No Reported Reaction Past Psychological History: No Psychological Hx Reported Smoking Status: Never smoker Past Alcohol Use History: None Reported Past Drug Use History: None Reported - Past Family History Mother Family Medical History: CVA/TIA (mother at age 76 from CVA.) Father Family Medical History: Myocardial Infarction ([place]) (father at age of 51 from myocardial infarction) Brother(s) Family Medical History: COPD (patient had 2 brothers one of them from COPD. ) Sister(s) Family Medical History: Cancer (and she had breast cancer.), Coronary Artery Disease (CAD) (patient had one sister who from CAD.) Daughter(s) Family Medical History: No Reported History (patient has 4 daughters no major medical problems.) Son(s) Family Medical History: No Reported History (patient has 3 sons no major medical problems.) Medications and Allergies Home Medications Medication Instructions Recorded Confirmed Type Aspirin EC [Ecotrin Low Dose] 81 mg PO DAILY 04/06/14 06/12/17 History Levothyroxine Sodium [Synthroid] 50 mcg PO DAILY 04/06/14 06/12/17 History Metoprolol Tartrate [Lopressor] 100 mg PO DAILY 04/06/14 06/12/17 History Multivitamins, Thera [Multivitamin 1 tab PO DAILY 04/06/14 06/12/17 History (formulary)] Donepezil [Aricept] 10 mg PO HS 05/26/15 06/12/17 History Cholecalciferol (Vitamin D3) 2,000 unit PO DAILY 06/12/17 06/12/17 History [Vitamin D3] Lisinopril [Zestril] 20 mg PO HS 06/12/17 06/12/17 History Allergies Allergy/AdvReac Type Severity Reaction Status Date / Time Sulfa (Sulfonamide Allergy Unknown Verified 06/12/17 06:45 Antibiotics) Childhood Physical Exam Vitals: Vital Signs Temp Pulse Pulse Pulse Resp BP BP 06/13/17 11:00 71 20 114/50 06/13/17 10:00 68 20 139/43 06/13/17 09:00 76 20 133/55 06/13/17 08:00 97.9 F 86 20 116/50 06/13/17 07:00 79 20 104/50 06/13/17 06:00 83 18 132/51 06/13/17 05:00 82 20 85/52 06/13/17 04:00 97.9 F 81 21 97/47 06/13/17 03:00 83 26 H 112/38 18 02:00 83 25 H 122/50 18 01:00 78 23 126/71 06/13/17 00:00 98 F 85 22 110/65 06/12/17 23:00 97.7 F 86 22 113/48 06/12/17 22:00 96 29 H 85/58 1618 21:50 89 21 85/58 16/18 21:40 87 47 H 85/58 18 21:30 89 26 H 85/58 1618 21:20 90 48 H 85/58 16/18 21:10 82 53 H 85/58 18 21:00 85 24 163/63 06/12/18 20:30 91 22 151/66 18 20:00 98.7 F 95 43 H 151/66 06/12/18 19:50 85 19 151/66 18 19:40 93 39 H 89/67 16/18 19:30 90 23 158/51 18 19:20 85 30 H 158/51 18 19:10 102 H 42 H 158/51 16/18 19:00 101 H 27 H 163/56 06/12/18 18:50 90 38 H 163/56 18 18:40 98.4 F 89 18 163/56 18 18:35 163/56 18 17:45 88 16 136/58 18 16:45 90 16 127/57 18 16:15 81 16 127/62 18 16:00 82 16 130/78 18 15:30 85 16 123/59 18 15:15 88 16 144/68 18 15:06 97.6 F 91 16 146/64 Pulse Ox 06/13/17 11:00 96 06/13/17 10:00 96 06/13/17 09:00 95 06/13/17 08:00 96 06/13/17 07:00 96 02/17/18 06:00 95 06/13/17 05:00 97 06/13/17 04:00 90 L 06/13/17 03:00 92 L 06/13/17 02:00 94 L 06/13/17 01:00 94 L 06/13/17 00:00 96 06/12/17 23:00 96 06/12/17 22:00 96 06/12/17 21:50 97 06/12/17 21:40 95 06/12/17 21:30 97 06/12/17 21:20 97 06/12/17 21:10 97 06/12/17 21:00 94 L 06/12/17 20:30 97 06/12/17 20:00 96 06/12/17 19:50 06/12/17 19:40 06/12/17 19:30 06/12/17 19:20 06/12/17 19:10 06/12/17 19:00 98 06/12/17 18:50 96 06/12/17 18:40 93 L 06/12/17 18:35 06/12/17 17:45 96 06/12/17 16:45 95 06/12/17 16:15 95 06/12/17 16:00 96 06/12/17 15:30 97 06/12/17 15:15 96 06/12/17 15:06 94 L Intake and Output 06/12/17 06/13/17 06/13/17 22:59 06:59 14:59 Intake Total 610.4 2134.109 7569.404 Output Total 575 Balance 610.4 2754.416 3579.404 Intake: IV 410.4 1161.6 726.3 Octreotide 200 mcg In 50.4 201.6 126.3 Sodium Chloride 0.9% 100 ml @ 50 MCG/HR 25.25 mls/ hr IV .Q4H [facility] Rx#: [id number] Sodium Chloride 0.9% 1, 360 960 600 000 ml @ 120 mls/hr IV . Q8H20M [facility] Rx#:[id number] Intake, IV Titration 100 189.376 204.104 Amount Levofloxacin 500Mg-D5w 100 Pmx 500 mg In Dextrose/ Water 1 100ml.bag @ 100 mls/hr IVPB Q24H [facility] Rx#: [id number] Octreotide 200 mcg In 189.376 204.104 Sodium Chloride 0.9% 100 ml @ 50 MCG/HR 25.25 mls/ hr IV .Q4H [facility] Rx#: [id number] Oral 100 240 240 Output: Urine 575 Other: Voiding Method Bedside Commode Bedside Commode Bedside Commode # Voids 1 1 # Bowel Movements 1 1 1 Weight 85.1 kg Physical Exam: Revealed an 81-year-old female, slightly pale, in no form of respiratory distress. HEENT:[Neck is supple.] [No neck masses.] [No thyromegaly.] [No JVD.] Chest: [Clear throughout, no crackles, no rhonchi, no wheezes.] Cardiac Exam: [Normal S1 and S2, no S3 gallop, no murmur.] Abdomen: [Soft, nontender, no megaly, no rebound, no guarding, normal bowel sounds.] Extremities: [No clubbing, no edema, no cyanosis.] Neurological Exam: [No focal neurologic deficit. However the patient is noted to be confused.] Lymphatics: No lymphadenopathy. Skin: No rashes. Results - Laboratory Findings CBC and BMP: 06/13/17 04:52 06/13/17 04:52 PT/INR, D-dimer PT 12.9 sec (9.0-12.0) H 06/12/17 03:38 INR 1.4 (<1.2) H 06/12/17 03:38 Abnormal lab findings: Abnormal Labs 06/12/17 06/12/17 06/12/17 03:38 03:38 03:38 RBC 3.39 L Hgb 9.9 L Hct 32.4 L MCHC 30.5 L Neutrophils # PT 12.9 H INR 1.4 H APTT 20.4 L BUN 47 H Creatinine Glucose 125 H POC Glucose (mg/dL) Calcium 11.7 H AST Total Protein 5.7 L Albumin 2.8 L 06/12/1718 18 16:19 18:30 04:52 RBC 3.20 L 2.69 L Hgb 9.4 L 7.9 L D Hct 30.5 L 25.8 L MCHC 30.7 L 30.7 L Neutrophils # 8.8 H PT INR APTT BUN Creatinine Glucose POC Glucose (mg/dL) 123 H Calcium AST Total Protein Albumin 06/13/17 04:52 RBC Hgb Hct MCHC Neutrophils # PT INR APTT BUN 62 H Creatinine 1.10 H Glucose 124 H POC Glucose (mg/dL) Calcium AST 37 H Total Protein 5.3 L Albumin 2.5 L Assessment and Plan Assessment: Impression: 1 acute upper GI bleeding secondary to bleeding esophageal varices secondary to portal hypertension and cryptogenic cirrhosis of the liver. Status post ligation of esophageal varices. 2 acute blood loss, anemia secondary to upper GI bleeding. 3 acute melena secondary to above. 4 history of hypertension 5 history of hypothyroidism. Recommendation: I fully agree with the present treatment plan as outlined by the admitting physician and by the gastroenterology service on the case, patient is now on Sandostatin, we'll continue to monitor in the ICU, and possible transfer out of the ICU in the next 24 hours. In the meantime continue serial hemoglobin and hematocrit measurements, no need for any blood transfusion at this point. We'll continue to follow. Time with Patient: Greater than 30
[2017-06-13 12:13] LABS: Basophils % (A) 0 %; Eosinophils # (A) 0.1 k/uL (0-0.7); Eosinophils % (A) 1 %; HCT 25.4 % (34.0-46.0); HGB 7.9 gm/dL (11.4-16.0); Lymphocytes # (A) 1.1 k/uL (1.0-4.8); Lymphocytes % (A) 14 %; MCH 29.6 pg (25.0-35.0); MCHC 31.1 g/dL (31.0-37.0); MCV 95.1 fL (80.0-100.0); Mean Platelet Volume 7.4; Monocytes # (A) 0.5 k/uL (0-1.0); Monocytes % (A) 7 %; Neutrophils # (A) 5.8 k/uL (1.3-7.7); Neutrophils % (A) 76 %; Platelet Count 217 k/uL (150-450); RBC 2.67 m/uL (3.80-5.40); RDW 13.3 % (11.5-15.5); WBC 7.6 k/uL (3.8-10.6)
[2017-06-13] MEDS: LEVOFLOXACIN 500MG-D5W PMX 500 MG in DEXTROSE/WATER 1 100ML.BAG IVPB SCH (15:46)
[2017-06-13] MEDS: LISINOPRIL 20 MG TAB PO SCH (20:17)
[2017-06-13] MEDS: DONEPEZIL 10 MG TAB PO SCH (20:17)
[2017-06-14] MEDS: OCTREOTIDE 200 MCG in SODIUM CHLORIDE 0.9% 100 ML IV SCH ×4 (00:13→13:30)
[2017-06-14 04:42] LABS: Basophils % (A) 0 %; Eosinophils # (A) 0.1 k/uL (0-0.7); Eosinophils % (A) 3 %; HCT 22.9 % (34.0-46.0); Hypochromasia Slight; Lymphocytes # (A) 0.8 k/uL (1.0-4.8); Lymphocytes % (A) 21 %; MCH 29.1 pg (25.0-35.0); MCHC 30.5 g/dL (31.0-37.0); MCV 95.5 fL (80.0-100.0); Mean Platelet Volume 7.7; Monocytes # (A) 0.3 k/uL (0-1.0); Monocytes % (A) 8 %; Neutrophils # (A) 2.4 k/uL (1.3-7.7); Neutrophils % (A) 65 %; Platelet Count 153 k/uL (150-450); RDW 13.6 % (11.5-15.5); WBC 3.6 k/uL (3.8-10.6)
[2017-06-14 04:51] LABS: Anion Gap 6 mmol/L; Blood Urea Nitrogen 37 mg/dL (7-17); Calcium 8.5 mg/dL (8.4-10.2); Carbon Dioxide 26 mmol/L (22-30); Chloride 110 mmol/L (98-107); Glucose 106 mg/dL (74-99); Potassium 3.8 mmol/L (3.5-5.1); Sodium 142 mmol/L (137-145)
[2017-06-14] MEDS: SODIUM CHLORIDE 0.9% 1,000 ML IV SCH ×2 (05:59→13:29)
[2017-06-14] MEDS: LEVOTHYROXINE 50 MCG TAB PO SCH (06:00)
[2017-06-14] MEDS ORDERED: POTASSIUM CHLORIDE ER 20 MEQ TAB.ER PO SCH (06:00)
[2017-06-14] MEDS: PANTOPRAZOLE 40 MG/10 ML VIAL IVP SCH (08:30)
[2017-06-14] MEDS: METOPROLOL TARTRATE 50 MG TAB PO SCH (09:05)
--- NOTE | 2017-06-14 10:58 | P.PN ---
Subjective Progress Note Date: 06/14/17 Principal diagnosis: GI bleed Patient continued to be hemodynamically stable overnight no further blood in stool or vomiting blood reported by nursing staff. Patient still on Sandostatin infusion and Protonix drip without any complication. Patient is tolerating diet well sitting up in chair and daughter at the bedside who feels that her mother is improving Objective - Vital Signs Vital signs: Vital Signs Temp 98.2 F 06/14/17 09:23 Pulse 66 06/14/17 10:00 Resp 25 H 06/14/17 10:00 BP 107/43 06/14/17 10:00 Pulse Ox 96 06/14/17 10:00 Intake & Output 06/13/17 06/14/17 06/14/17 18:59 06:59 18:59 Intake Total 2868.404 2177.217 996.9 Output Total 0 Balance 2868.404 2177.217 996.9 Weight 87.2 kg Intake: IV 1743.3 1635.9 345.9 Octreotide 200 mcg In 303.3 75.9 75.9 Sodium Chloride 0.9% 100 ml @ 50 MCG/HR 25.25 mls/ hr IV .Q4H [facility] Rx#: [id number] Sodium Chloride 0.9% 1, 1440 1560 270 000 ml @ 120 mls/hr IV . Q8H20M [facility] Rx#:[id number] Intake, IV Titration 405.104 301.317 101 Amount Levofloxacin 500Mg-D5w 100 Pmx 500 mg In Dextrose/ Water 1 100ml.bag @ 100 mls/hr IVPB Q24H [facility] Rx#: [id number] Octreotide 200 mcg In 305.104 301.317 101 Sodium Chloride 0.9% 100 ml @ 50 MCG/HR 25.25 mls/ hr IV .Q4H [facility] Rx#: [id number] Oral 720 240 240 Blood Product 0 310 Rc As-1 Unit 0 310 [id number] Output: Urine 0 Other: Voiding Method Bedside Commode Bedside Commode Bedside Commode # Voids 1 1 1 # Bowel Movements 1 - Exam Gen. and have stated age in no acute distress Lungs diminished bilaterally Heart normal S1-S2 Abdomen soft no tenderness positive bowel sounds in all 4 quadrants Skin no new rash Lower extremity positive pulses bilaterally - Labs CBC & Chem 7: 06/14/17 04:19 06/14/17 04:19 Labs: Abnormal Lab Results - Last 24 Hours (Table) 06/12/17 06/13/17 06/14/17 Range/Units 05:42 11:20 04:19 WBC 3.6 L (3.8-10.6) k/uL RBC 2.67 L 2.40 L (3.80-5.40) m/uL Hgb 7.9 L 7.0 L* (11.4-16.0) gm/dL Hct 25.4 L 22.9 L (34.0-46.0) % MCHC 30.5 L (31.0-37.0) g/dL Lymphocytes # 0.8 L (1.0-4.8) k/uL Chloride (98-107) mmol/L BUN (7-17) mg/dL Glucose (74-99) mg/dL Crossmatch See Detail 06/14/17 Range/Units 04:19 WBC (3.8-10.6) k/uL RBC (3.80-5.40) m/uL Hgb (11.4-16.0) gm/dL Hct (34.0-46.0) % MCHC (31.0-37.0) g/dL Lymphocytes # (1.0-4.8) k/uL Chloride 110 H (98-107) mmol/L BUN 37 H (7-17) mg/dL Glucose 106 H (74-99) mg/dL Crossmatch Assessment and Plan Assessment: 1. Large med and distal esophageal varices with no active bleeding status post variceal ligation. Patient will be done with Sandostatin and Protonix drip infusion sewn and we will consider the transferring patient to general medical floor plan discussed with critical care and he is agreeable with the current treatment plan. Plan also discussed with the patient's daughter who at the bedside and she is comfortable with this plan. 2. Hypertension. Controlled with continual blood pressure medication with holding parameters. 3. Hypothyroidism. Continue Synthroid. 4. Cirrhosis of the liver. We'll continue evidence based medicine and follow- up with GI recommendation. 5. Discharge planning based on clinical progress
--- NOTE | 2017-06-14 14:32 | P.PN ---
Subjective Progress Note Date: 06/14/17 Principal diagnosis: Acute upper GI bleeding secondary to esophageal varices This is an 81-year-old female with history of cryptogenic liver cirrhosis, previous liver biopsy confirming this diagnosis. History of multiple comorbidities including hypertension, hypothyroidism, dementia, history of cholelithiasis and history of pancreatitis, patient was admitted yesterday through the emergency room with a few weeks history of left upper quadrant pain and abdominal soreness. Patient was scheduled to have ultrasound of the abdomen on outpatient basis, however the patient presented in the morning of with nausea vomiting and coffee-ground emesis. She also noted black- colored bowel movements. Patient had no previous history of peptic ulcer disease, no previous history of GI bleeding. She is not taking any alcohol and she is not on any nonsteroidal anti-inflammatory drugs. She does take one baby aspirin daily. Patient was seen yesterday by gastroenterology on consultation, underwent EGD, and she was found to have a large mid and distal esophageal varices with no active bleeding. Blood clots were noted in the fundus of the stomach, patient underwent variceal ligation. Postoperatively patient was admitted to the ICU, and I was asked to see her on consultation. Hemoglobin on admission was 9.9, hemoglobin today is 7.9, patient did not require any blood transfusions. The patient herself is known to have history of dementia, not much history could be obtained from the patient, however most of it was obtained from the chart. Patient was reevaluated today on 06/14/2017, feeling much better, no evidence of active bleeding, hemoglobin seems to be holding with minimal drop, patient will be off Sandostatin today, and we'll likely transfer out of the ICU to a regular medical floor. Hemoglobin today is 7, and she'll be receiving a unit of packed RBCs ordered by gastroenterology. Labs were reviewed and they seem to be relatively unremarkable. Objective - Vital Signs Vital signs: Vital Signs Temp 97.9 F 06/14/17 12:00 Pulse 64 06/14/17 14:00 Resp 18 06/14/17 14:00 BP 118/55 06/14/17 14:00 Pulse Ox 96 06/14/17 14:00 Intake & Output 06/13/17 06/14/17 06/14/17 18:59 06:59 18:59 Intake Total 2868.404 2177.217 1573.8 Output Total 0 Balance 2868.404 2177.217 1573.8 Weight 87.2 kg Intake: IV 1743.3 1635.9 701.8 Octreotide 200 mcg In 303.3 75.9 151.8 Sodium Chloride 0.9% 100 ml @ 50 MCG/HR 25.25 mls/ hr IV .Q4H [facility] Rx#: [id number] Sodium Chloride 0.9% 1, 1440 1560 550 000 ml @ 20 mls/hr IV . Q24H [facility] Rx#:[id number] Intake, IV Titration 405.104 301.317 202 Amount Levofloxacin 500Mg-D5w 100 Pmx 500 mg In Dextrose/ Water 1 100ml.bag @ 100 mls/hr IVPB Q24H [facility] Rx#: [id number] Octreotide 200 mcg In 305.104 301.317 202 Sodium Chloride 0.9% 100 ml @ 50 MCG/HR 25.25 mls/ hr IV .Q4H [facility] Rx#: [id number] Oral 720 240 360 Blood Product 0 310 Rc As-1 Unit 0 310 [id number] Output: Urine 0 Other: Voiding Method Bedside Commode Bedside Commode Bedside Commode # Voids 1 1 1 # Bowel Movements 1 - Exam Physical Exam: Revealed an 81-year-old female, slightly pale, in no form of respiratory distress. HEENT:[Neck is supple.] [No neck masses.] [No thyromegaly.] [No JVD.] Chest: [Clear throughout, no crackles, no rhonchi, no wheezes.] Cardiac Exam: [Normal S1 and S2, no S3 gallop, no murmur.] Abdomen: [Soft, nontender, no megaly, no rebound, no guarding, normal bowel sounds.] Extremities: [No clubbing, no edema, no cyanosis.] Neurological Exam: [No focal neurologic deficit. However the patient is noted to be confused.] Lymphatics: No lymphadenopathy. Skin: No rashes. - Labs CBC & Chem 7: 06/14/17 04:19 06/14/17 04:19 Labs: Abnormal Lab Results - Last 24 Hours (Table) 06/12/17 06/14/17 06/14/17 Range/Units 05:42 04:19 04:19 WBC 3.6 L (3.8-10.6) k/uL RBC 2.40 L (3.80-5.40) m/uL Hgb 7.0 L* (11.4-16.0) gm/dL Hct 22.9 L (34.0-46.0) % MCHC 30.5 L (31.0-37.0) g/dL Lymphocytes # 0.8 L (1.0-4.8) k/uL Chloride 110 H (98-107) mmol/L BUN 37 H (7-17) mg/dL Glucose 106 H (74-99) mg/dL Crossmatch See Detail Assessment and Plan Assessment: Impression: 1 acute upper GI bleeding secondary to bleeding esophageal varices secondary to portal hypertension and cryptogenic cirrhosis of the liver. Status post ligation of esophageal varices. 2 acute blood loss, anemia secondary to upper GI bleeding. 3 acute melena secondary to above. 4 history of hypertension 5 history of hypothyroidism. Recommendation: Continue treatment plan as per gastroenterology on the case, patient will be transferred out of the ICU today, will follow on when necessary basis. Time with Patient: Less than 30
[2017-06-14] MEDS: ACETAMINOPHEN TAB 325 MG TAB PO PRN (14:54)
[2017-06-14] MEDS ORDERED: LEVOFLOXACIN 250MG-D5W PMX 250 MG in DEXTROSE/WATER 1 50ML.BAG IVPB SCH (15:00)
[2017-06-14] MEDS: DONEPEZIL 10 MG TAB PO SCH (21:22)
[2017-06-14] MEDS: LISINOPRIL 20 MG TAB PO SCH (21:23)
[2017-06-15] MEDS: ACETAMINOPHEN TAB 325 MG TAB PO PRN (00:03)
[2017-06-15] MEDS: SODIUM CHLORIDE 0.9% 1,000 ML IV SCH (05:27)
[2017-06-15] MEDS: LEVOTHYROXINE 50 MCG TAB PO SCH (06:33)
[2017-06-15 07:07] LABS: Basophils % (A) 0 %; Eosinophils # (A) 0.1 k/uL (0-0.7); Eosinophils % (A) 5 %; HCT 24.5 % (34.0-46.0); HGB 7.7 gm/dL (11.4-16.0); Hypochromasia Slight; Lymphocytes # (A) 0.7 k/uL (1.0-4.8); Lymphocytes % (A) 22 %; MCH 29.7 pg (25.0-35.0); MCHC 31.4 g/dL (31.0-37.0); MCV 94.8 fL (80.0-100.0); Mean Platelet Volume 7.6; Monocytes # (A) 0.2 k/uL (0-1.0); Monocytes % (A) 6 %; Neutrophils % (A) 65 %; Platelet Count 152 k/uL (150-450); RBC 2.58 m/uL (3.80-5.40); RDW 14.2 % (11.5-15.5); WBC 3.1 k/uL (3.8-10.6)
[2017-06-15 07:27] LABS: ALT 24 U/L (9-52); AST 42 U/L (14-36); Albumin 2.1 g/dL (3.5-5.0); Alkaline Phosphatase 87 U/L (38-126); Anion Gap 5 mmol/L; Blood Urea Nitrogen 20 mg/dL (7-17); Calcium 8.8 mg/dL (8.4-10.2); Carbon Dioxide 26 mmol/L (22-30); Chloride 110 mmol/L (98-107); Glucose 115 mg/dL (74-99); Sodium 141 mmol/L (137-145); Total Bilirubin 0.5 mg/dL (0.2-1.3); Total Protein 4.7 g/dL (6.3-8.2)
[2017-06-15 09:11] VITALS: BP 144/74; PULSE 69; RESP 14; TEMP 98
[2017-06-15] MEDS: METOPROLOL TARTRATE 50 MG TAB PO SCH (09:14)
[2017-06-15] MEDS: PANTOPRAZOLE 40 MG/10 ML VIAL IVP SCH (09:14)
--- NOTE | 2017-06-15 10:00 | P.PN ---
Subjective Progress Note Date: 06/15/17 Principal diagnosis: Acute upper GI bleeding secondary to esophageal varices This is an 81-year-old female with history of cryptogenic liver cirrhosis, previous liver biopsy confirming this diagnosis. History of multiple comorbidities including hypertension, hypothyroidism, dementia, history of cholelithiasis and history of pancreatitis, patient was admitted yesterday through the emergency room with a few weeks history of left upper quadrant pain and abdominal soreness. Patient was scheduled to have ultrasound of the abdomen on outpatient basis, however the patient presented in the morning of with nausea vomiting and coffee-ground emesis. She also noted black- colored bowel movements. Patient had no previous history of peptic ulcer disease, no previous history of GI bleeding. She is not taking any alcohol and she is not on any nonsteroidal anti-inflammatory drugs. She does take one baby aspirin daily. Patient was seen yesterday by gastroenterology on consultation, underwent EGD, and she was found to have a large mid and distal esophageal varices with no active bleeding. Blood clots were noted in the fundus of the stomach, patient underwent variceal ligation. Postoperatively patient was admitted to the ICU, and I was asked to see her on consultation. Hemoglobin on admission was 9.9, hemoglobin today is 7.9, patient did not require any blood transfusions. The patient herself is known to have history of dementia, not much history could be obtained from the patient, however most of it was obtained from the chart. Patient was reevaluated today on 06/14/2017, feeling much better, no evidence of active bleeding, hemoglobin seems to be holding with minimal drop, patient will be off Sandostatin today, and we'll likely transfer out of the ICU to a regular medical floor. Hemoglobin today is 7, and she'll be receiving a unit of packed RBCs ordered by gastroenterology. Labs were reviewed and they seem to be relatively unremarkable. On 06/15/2017 patient seen in follow-up. She is sitting up in the chair, in no acute distress. She is eating a clear liquid diet breakfast, her daughter is at the bedside, she stated patient has had no further episodes of hematemesis this admission, her last bowel movement was back on 06/13/2017. Patient remains hemodynamically stable, she received 1 unit of blood yesterday for hemoglobin of 7.0. Today her hemoglobin is up to 7.7, she has had no further bleeding. Lung sounds are clear, patient denies any shortness of breath or chest pain. From pulmonary/critical care standpoint we will sign off and follow on as-needed basis. Objective - Vital Signs Vital signs: Vital Signs Temp 98 F 06/15/17 08:00 Pulse 69 06/15/17 08:00 Resp 14 06/15/17 08:00 BP 144/74 06/15/17 08:00 Pulse Ox 97 06/15/17 08:00 Intake & Output 06/14/17 06/15/17 06/15/17 18:59 06:59 18:59 Intake Total 1843.8 40 Balance 1843.8 40 Intake: IV 801.8 40 Octreotide 200 mcg In 151.8 Sodium Chloride 0.9% 100 ml @ 50 MCG/HR 25.25 mls/ hr IV .Q4H CARLOS Rx#: [id number] Sodium Chloride 0.9% 1, 650 40 000 ml @ 20 mls/hr IV . Q24H CARLOS Rx#:[id number] Intake, IV Titration 252 Amount Levofloxacin 250Mg-D5w 50 Pmx 250 mg In Dextrose/ Water 1 50ml.bag @ 50 mls /hr IVPB Q24H CARLOS Rx#: [id number] Octreotide 200 mcg In 202 Sodium Chloride 0.9% 100 ml @ 50 MCG/HR 25.25 mls/ hr IV .Q4H CARLOS Rx#: [id number] Oral 480 Blood Product 310 Rc As-1 Unit 310 [id number] Other: Voiding Method Bedside Commode Bedside Commode # Voids 1 3 - Exam Physical Exam: Revealed an 81-year-old female, slightly pale, in no form of respiratory distress. HEENT:[Neck is supple.] [No neck masses.] [No thyromegaly.] [No JVD.] Chest: [Clear throughout, no crackles, no rhonchi, no wheezes.] Cardiac Exam: [Normal S1 and S2, no S3 gallop, no murmur.] Abdomen: [Soft, nontender, no megaly, no rebound, no guarding, normal bowel sounds.] Extremities: [No clubbing, no edema, no cyanosis.] Neurological Exam: [No focal neurologic deficit. However the patient is noted to be confused.] Lymphatics: No lymphadenopathy. Skin: No rashes. - Labs CBC & Chem 7: 06/15/17 06:30 06/15/17 06:30 Labs: Abnormal Lab Results - Last 24 Hours (Table) 06/15/17 06/15/17 Range/Units 06:30 06:30 WBC 3.1 L (3.8-10.6) k/uL RBC 2.58 L (3.80-5.40) m/uL Hgb 7.7 L (11.4-16.0) gm/dL Hct 24.5 L (34.0-46.0) % Lymphocytes # 0.7 L (1.0-4.8) k/uL Chloride 110 H (98-107) mmol/L BUN 20 H (7-17) mg/dL Glucose 115 H (74-99) mg/dL AST 42 H (14-36) U/L Total Protein 4.7 L (6.3-8.2) g/dL Albumin 2.1 L (3.5-5.0) g/dL Assessment and Plan Plan: Assessment: 1 acute upper GI bleeding secondary to bleeding esophageal varices secondary to portal hypertension and cryptogenic cirrhosis of the liver. Status post ligation of esophageal varices. 2 acute blood loss, anemia secondary to upper GI bleeding. 3 acute melena secondary to above. 4 history of hypertension 5 history of hypothyroidism. Recommendation: Patient remains hemodynamically stable, today's hemoglobin is 7.7, patient did receive 1 unit of blood yesterday. Patient has had no further episodes of hematemesis since admission, last bowel movement was back on 06/13/2017. She is tolerating clear liquid diet. No specific complaints, denies any shortness of breath, denies any chest pain. From pulmonary critical standpoint, patient remains stable, we will sign off and follow the patient on as-needed basis. Thank you for this consultation I performed a history & physical examination of the patient and discussed their management with my nurse practitioner, Jessica Martins. I reviewed the nurse practitioner's note and agree with the documented findings and plan of care. Lung sounds are clear. The findings and the impression was discussed with the patient. I attest to the documentation by the nurse practitioner. Time with Patient: Less than 30
--- NOTE | 2017-06-15 15:49 | P.DS ---
Providers Date of admission: 06/12/17 05:38 Expected date of discharge: 06/15/17 Attending physician: Lico Crenshaw Consults: 06/12/17 05:39 Consult Physician Urgent Consulting Provider: Xiomara Dc Consult Reason/Comments: ICU management Do you want consulting provider notified?: Yes 06/13/17 15:35 Consult Physician Urgent Consulting Provider: Aretha Harris Consult Reason/Comments: GI Bleed Do you want consulting provider notified?: Already Contacted Primary care physician: [facility] Course: This is an 81-year-old female one of Dr. Brink with a previous medical history significant for critical aortic cirrhosis of the liver, has been under the care of gastroneurology Dr. Chamberlain and she had in the past upper endoscopy as well as colonoscopy about 2 years ago, patient was seen in the office about last week and she was supposed to go for an ultrasound of the spleen due to her left upper quadrant pain, patient also has a history of hypertension and hypertensive cardio vascular disease, hypothyroidism, history of vascular dementia, history of osteoarthritis, patient apparently was doing fine up until yesterday when she had a cream of chicken soup, she went to bed and woke up at around 2:00 in the morning complaining of increased burping associated with some mid abdominal epigastric discomfort patient ended up going to the bathroom later on in the morning hours and she had vomited a what appears to be dark and coffee-ground emesis and she also has been having some tarry black stool for the past few days as well, patient ended up coming to the ER at [facility] she was found to have a lower hemoglobin and she was admitted to the hospital for an acute upper GI bleed she was seen in consultation by gastroenterology she is scheduled to go for EGD later on today. 06/13: Patient continued to be at baseline mental status garvey she is alert and oriented 2-3 family at the bedside including and daughter who feels that she's back at baseline. No major events reported by nursing staff. Patient is denying chest pain, shortness breath, nausea, vomiting, dumping or dizziness 06/14: Patient continued to be hemodynamically stable overnight no further blood in stool or vomiting blood reported by nursing staff. Patient still on Sandostatin infusion and Protonix drip without any complication. Patient is tolerating diet well sitting up in chair and daughter at the bedside who feels that her mother is improving 06/15: Repeat hemoglobin this morning is 7.7. Patient has had no nausea vomiting with clear liquids and will be discharged home today in stable condition. Diet to be advanced very slowly. Discharge diagnoses: 1. Acute upper GI bleed could be related to esophageal varices versus Sonya- Hyde tear. 2. Hypertension and hypertensive cardiovascular disease. 3. Hypothyroidism. 4. Cryptogenic cirrhosis of the liver. 5. Osteoarthritis. Stable at this time. 6. Vascular dementia. Discharge plan: Home Impression and plan of care have been directed as dictated by the signing physician. Yuliana Hanson nurse practitioner acting as scribe for signing physician. Patient Condition at Discharge: Good Plan - Discharge Summary Discharge Rx Participant: No New Discharge Prescriptions: New Pantoprazole Sodium [Protonix] 40 mg PO DAILY #30 tablet.dr Junior Multivitamins, Thera [Multivitamin (formulary)] 1 tab PO DAILY Aspirin EC [Ecotrin Low Dose] 81 mg PO DAILY Levothyroxine Sodium [Synthroid] 50 mcg PO DAILY Metoprolol Tartrate [Lopressor] 100 mg PO DAILY Donepezil [Aricept] 10 mg PO HS Lisinopril [Zestril] 20 mg PO HS Cholecalciferol (Vitamin D3) [Vitamin D3] 2,000 unit PO DAILY Discharge Medication List Aspirin EC [Ecotrin Low Dose] 81 mg PO DAILY 04/06/14 [History] Levothyroxine Sodium [Synthroid] 50 mcg PO DAILY 04/06/14 [History] Metoprolol Tartrate [Lopressor] 100 mg PO DAILY 04/06/14 [History] Multivitamins, Thera [Multivitamin (formulary)] 1 tab PO DAILY 04/06/14 [History ] Donepezil [Aricept] 10 mg PO HS 05/26/15 [History] Cholecalciferol (Vitamin D3) [Vitamin D3] 2,000 unit PO DAILY 06/12/17 [History] Lisinopril [Zestril] 20 mg PO HS 06/12/17 [History] Pantoprazole Sodium [Protonix] 40 mg PO DAILY #30 tablet. 06/15/17 [Rx] Follow up Appointment(s)/Referral(s): Trena Brink MD [Primary Care Provider] - 1 Week (Office closed please call to make appointment) Aretha Harris MD [STAFF PHYSICIAN] - 07/01/17 12:30 pm Patient Instructions/Handouts: Gastrointestinal Bleeding (DC), Soft Diet (DC) Discharge Disposition: HOME SELF-CARE
== END 2017-06-15 13:20 | disposition home or self-care (01) | DRG 369 ==
LOC: EC 03:17 → 3SUR 05:38 → 6ICU 17:46 → 3SUR 06-14 21:46
PROVIDERS: ADMIT Internal Medicine; ATTEND Internal Medicine
PROC: 06L38CZ Occlusion of Esophageal Vein with Extraluminal Device, Via Natural or Artificial Opening Endoscopic (ICD-10-PCS; principal; 2017-06-12 07:30)
DX: I85.01 Esophageal varices with bleeding (principal); D62 Acute posthemorrhagic anemia; D68.9 Coagulation defect, unspecified; K76.6 Portal hypertension; F01.50 Vascular dementia, unspecified severity, without behavioral disturbance, psychotic disturbance, mood disturbance, and anxiety; K22.6 Gastro-esophageal laceration-hemorrhage syndrome; E03.9 Hypothyroidism, unspecified; E78.5 Hyperlipidemia, unspecified; I11.9 Hypertensive heart disease without heart failure; K21.9 Gastro-esophageal reflux disease without esophagitis; K74.69 Other cirrhosis of liver; M19.90 Unspecified osteoarthritis, unspecified site; Z79.82 Long term (current) use of aspirin; Z79.899 Other long term (current) drug therapy; Z90.710 Acquired absence of both cervix and uterus; Z88.2 Allergy status to sulfonamides; Z96.60 Presence of unspecified orthopedic joint implant; Z90.49 Acquired absence of other specified parts of digestive tract; Z82.49 Family history of ischemic heart disease and other diseases of the circulatory system
CPT/HCPCS: 36415; 43244; 80048; 80053; 82105; 85025; 85610; 85730; 86850; 86900; 86901; 86920; 96374; 99285

== ENCOUNTER 2017-07-23 09:32 | Day surgery (SDC) | payer MEDICARE ==
[2017-07-22 07:58] VITALS: BMI 37.2
[~2017-07-23 09:32] MED LIST: LACTATED RINGERS 1,000 ML IV SCH; LIDOCAINE 1% 20 ML VIAL (10MG/ML) FOR IV START INTRADERMA PRN
[2017-07-23 10:11] VITALS: RESP 16; TEMP 97.5
[2017-07-23] MEDS ORDERED: PROPOFOL 10 MG/ML 20 ML VIAL IV ONE (11:23)
--- NOTE | 2017-07-23 11:34 | P.PCN ---
Date of Procedure: 07/23/17 Procedure(s) Performed: BRIEF HISTORY: Patient is a 81-year-old, pleasant, white female, scheduled for an upper endoscopy with variceal ligation as a part of follow-up of esophageal variceal bleeding a month ago. She has cirrhosis of the liver diagnosed 6 months ago.. PROCEDURE PERFORMED: Esophagogastroduodenoscopy with esophageal variceal ligation. PREOPERATIVE DIAGNOSIS: Follow-up esophageal varices. IV sedation per anesthesia. PROCEDURE: After informed consent was obtained, the patient was brought into the endoscopy unit. IV sedation was administered by Anesthesia under continuous monitoring. Initially the Olympus GIF-140 video endoscope was inserted into the mouth. Esophagus intubated without any difficulty. It was gradually advanced into the stomach and duodenum and carefully examined. The bulb and the second part of the duodenum appeared normal. The scope at this time was withdrawn to the stomach, adequately insufflated with air, and upon careful examination, mucosa of the antrum, body, had changes consistent with portal hypertensive gastropathy. The cardia and the fundus appeared normal. The scope was then withdrawn into the esophagus. The GE junction was located at 38 cm from the incisors. There were no erosions or ulcerations seen. There was small mid/ distal esophageal varices seen with no active bleeding. The scope at this time was removed and the esophageal variceal ligation equipment was introduced of the tip of the scope and esophagus reintubated without any difficulty and was gradually advanced into the distal esophagus. Using suction total of 4 bands were deployed in distal and mid esophagus and the patient tolerated the procedure well. IMPRESSION: 1. Small mid/distal esophageal varices status post variceal ligation as described above. 2. Mild hypertensive gastropathy. RECOMMENDATIONS: The findings of this examination were discussed with the patient as well as a family. She was advised to remain on a soft diet today. We'll plan a repeat upper endoscopy with variceal ligation in 6 months..
[2017-07-23 12:21] VITALS: BP 160/82; PULSE 66
== END 2017-07-23 12:40 | disposition home or self-care (01) ==
LOC: ORWHC2ENDO 09:32
PROVIDERS: ATTEND Internal Medicine Gastroenterology
DX: I85.00 Esophageal varices without bleeding (principal); K76.6 Portal hypertension; K74.60 Unspecified cirrhosis of liver; K31.89 Other diseases of stomach and duodenum; Z88.2 Allergy status to sulfonamides; I10 Essential (primary) hypertension; E78.5 Hyperlipidemia, unspecified; E07.9 Disorder of thyroid, unspecified; K21.9 Gastro-esophageal reflux disease without esophagitis; F03.90 Unspecified dementia, unspecified severity, without behavioral disturbance, psychotic disturbance, mood disturbance, and anxiety; Z79.82 Long term (current) use of aspirin; Z79.899 Other long term (current) drug therapy
CPT/HCPCS: 43244; J2704; 43255

== ENCOUNTER 2017-07-27 17:48 | Emergency (ER) | payer MEDICARE ==
[2017-07-27 18:42] VITALS: RESP 18
--- NOTE | 2017-07-27 19:37 | ED ---
GI Bleed HPI - General Chief complaint: GI Bleed Stated complaint: Black stool Time Seen by Provider: 07/27/17 19:07 Source: patient Mode of arrival: ambulatory Limitations: no limitations - History of Present Illness Initial comments: This patient is an 81-year-old woman with history of cirrhosis and also of esophageal varices. She presents today because she was instructed to return to the hospital if she should develop any dark tarry stools and states that she has had to these today. The patient was in for banding of esophageal varices on July [address] Harris. She had gone home and was doing well, without any other symptoms. Patient denies any hemoptysis or hematemesis. She is not having any symptoms of anemia, including no dyspnea, diaphoresis, lightheadedness, palpitations or syncope, chest pain, or orthostatic symptoms. MD complaint: melena Onset/Timin -: days(s) Quality: painless Improves with: none Worsens with: none Context: history of GI bleed, known esophageal varices Associated Symptoms: denies other symptoms - Related Data Home Medications Medication Instructions Recorded Confirmed Aspirin EC [Ecotrin Low Dose] 81 mg PO DAILY 04/06/14 07/27/17 Levothyroxine Sodium [Synthroid] 50 mcg PO DAILY 04/06/14 07/27/17 Multivitamins, Thera [Multivitamin 1 tab PO DAILY 04/06/14 07/27/17 (formulary)] Donepezil [Aricept] 10 mg PO HS 05/26/15 07/27/17 Cholecalciferol (Vitamin D3) 2,000 unit PO DAILY 06/12/17 07/27/17 [Vitamin D3] Lisinopril [Zestril] 20 mg PO HS 06/12/17 07/27/17 Furosemide [Lasix] 20 mg PO DAILY 07/22/17 07/27/17 Iron 35mg 1 tab PO BID 07/22/17 07/27/17 Propranolol [Inderal] 20 mg PO BID 07/22/17 07/27/17 Calcium Carbonate/Vitamin D3 1 tab PO DAILY 07/27/17 07/27/17 [Calcium 500-Vit D3 200 Tablet] LORazepam [Ativan] 0.5 mg PO TID PRN 07/27/17 07/27/17 Previous Rx's Medication Instructions Recorded Pantoprazole Sodium [Protonix] 40 mg PO DAILY #30 tablet. 06/15/17 Allergies Allergy/AdvReac Type Severity Reaction Status Date / Time Sulfa (Sulfonamide Allergy Unknown Verified 07/27/17 19:15 Antibiotics) Childhood Review of Systems ROS Statement: Those systems with pertinent positive or pertinent negative responses have been documented in the HPI. ROS Other: All systems not noted in ROS Statement are negative. Constitutional: Denies: fever, chills Respiratory: Denies: cough, dyspnea Cardiovascular: Denies: chest pain, palpitations, orthopnea, syncope Gastrointestinal: Reports: melena. Denies: abdominal pain, nausea, vomiting, hematemesis, hematochezia Genitourinary: Denies: dysuria Musculoskeletal: Denies: back pain Skin: Denies: rash, change in color Neurological: Denies: headache, weakness, numbness Past Medical History Past Medical History: Dementia, GERD/Reflux, GI Bleed, Hyperlipidemia, Hypertension, Osteoarthritis (OA), Thyroid Disorder Additional Past Medical History / Comment(s): "short term memory loss", cryptogenic cirrhosis, hypothyroidism, daughter states pt understands and able to sign her own consents.,recent hospitalized for esophageal bleeding and anemia - received transfusion (MPH), uses cane. History of Any Multi-Drug Resistant Organisms: None Reported Past Surgical History: Bowel Resection, Breast Surgery, Hysterectomy, Joint Replacement Additional Past Surgical History / Comment(s): cataracts, laparoscopic cholecystectomy, left breast nipple surgery, COLT, exploratory laparotomy and partial colectomy . Past Anesthesia/Blood Transfusion Reactions: No Reported Reaction Additional Past Anesthesia/Blood Transfusion Reaction / Comment(s): Received blood transfusion 05/2017- denies reaction Past Psychological History: No Psychological Hx Reported Smoking Status: Never smoker Past Alcohol Use History: None Reported Past Drug Use History: None Reported - Past Family History Mother Family Medical History: CVA/TIA Father Family Medical History: Myocardial Infarction ([place]) Brother(s) Family Medical History: COPD Sister(s) Family Medical History: Cancer, Coronary Artery Disease (CAD) Daughter(s) Family Medical History: No Reported History Son(s) Family Medical History: No Reported History General Exam Limitations: no limitations General appearance: alert, in no apparent distress, obese Head exam: Present: atraumatic, normocephalic Eye exam: Present: normal appearance. Absent: scleral icterus, conjunctival injection ENT exam: Present: normal oropharynx Neck exam: Present: normal inspection Respiratory exam: Present: normal lung sounds bilaterally. Absent: respiratory distress, wheezes, rales, rhonchi, stridor Cardiovascular Exam: Present: regular rate, normal rhythm, normal heart sounds. Absent: systolic murmur, diastolic murmur, rubs, gallop GI/Abdominal exam: Present: soft. Absent: distended, tenderness, guarding, rebound, mass Extremities exam: Present: normal inspection, normal capillary refill. Absent: pedal edema, calf tenderness Neurological exam: Present: alert Skin exam: Present: warm, dry, intact, normal color. Absent: rash, pallor Course Vital Signs 07/27/17 18:38 Temperature 98.2 F Pulse Rate 66 Respiratory 18 Rate Blood Pressure 128/64 O2 Sat by Pulse 96 Oximetry Medical Decision Making - Lab Data Result diagrams: 07/27/17 20:00 07/27/17 20:00 Lab Results 07/27/17 07/27/17 07/27/17 Range/Units 20:00 20:00 20:00 WBC 7.0 (3.8-10.6) k/uL RBC 4.07 (3.80-5.40) m/uL Hgb 11.9 (11.4-16.0) gm/dL Hct 37.2 (34.0-46.0) % MCV 91.2 (80.0-100.0) fL MCH 29.3 (25.0-35.0) pg MCHC 32.1 (31.0-37.0) g/dL RDW 13.8 (11.5-15.5) % Plt Count 191 (150-450) k/uL Neutrophils % 65 % Lymphocytes % 19 % Monocytes % 8 % Eosinophils % 4 % Basophils % 0 % Neutrophils # 4.5 (1.3-7.7) k/uL Lymphocytes # 1.3 (1.0-4.8) k/uL Monocytes # 0.6 (0-1.0) k/uL Eosinophils # 0.3 (0-0.7) k/uL Basophils # 0.0 (0-0.2) k/uL PT (9.0-12.0) sec INR (<1.2) APTT (22.0-30.0) sec Sodium 140 (137-145) mmol/L Potassium 4.4 (3.5-5.1) mmol/L Chloride 102 (98-107) mmol/L Carbon Dioxide 28 (22-30) mmol/L Anion Gap 10 mmol/L BUN 15 (7-17) mg/dL Creatinine 0.80 (0.52-1.04) mg/dL Est GFR (CKD-EPI)AfAm 80 (>60 ml/min/1.73 sqM) Est GFR (CKD-EPI)NonAf 70 (>60 ml/min/1.73 sqM) Glucose 100 H (74-99) mg/dL Plasma Lactic Acid Erich (0.7-2.0) mmol/L Calcium 9.8 (8.4-10.2) mg/dL Total Bilirubin 0.6 (0.2-1.3) mg/dL AST 54 H (14-36) U/L ALT 25 (9-52) U/L Alkaline Phosphatase 205 H (38-126) U/L Total Creatine Kinase 32 (30-135) U/L CK-MB (CK-2) <0.2 (0.0-2.4) ng/mL CK-MB (CK-2) Rel Index Troponin I <0.012 (0.000-0.034) ng/mL Total Protein 6.5 (6.3-8.2) g/dL Albumin 3.0 L (3.5-5.0) g/dL Stool Occult Blood (Negative) Blood Type Blood Type Recheck Antibody Screen Spec Expiration Date 07/27/17 07/27/17 07/27/17 Range/Units 20:00 20:00 20:00 WBC (3.8-10.6) k/uL RBC (3.80-5.40) m/uL Hgb (11.4-16.0) gm/dL Hct (34.0-46.0) % MCV (80.0-100.0) fL MCH (25.0-35.0) pg MCHC (31.0-37.0) g/dL RDW (11.5-15.5) % Plt Count (150-450) k/uL Neutrophils % % Lymphocytes % % Monocytes % % Eosinophils % % Basophils % % Neutrophils # (1.3-7.7) k/uL Lymphocytes # (1.0-4.8) k/uL Monocytes # (0-1.0) k/uL Eosinophils # (0-0.7) k/uL Basophils # (0-0.2) k/uL PT 11.6 (9.0-12.0) sec INR 1.2 H (<1.2) APTT 23.2 (22.0-30.0) sec Sodium (137-145) mmol/L Potassium (3.5-5.1) mmol/L Chloride (98-107) mmol/L Carbon Dioxide (22-30) mmol/L Anion Gap mmol/L BUN (7-17) mg/dL Creatinine (0.52-1.04) mg/dL Est GFR (CKD-EPI)AfAm (>60 ml/min/1.73 sqM) Est GFR (CKD-EPI)NonAf (>60 ml/min/1.73 sqM) Glucose (74-99) mg/dL Plasma Lactic Acid Erich 2.0 (0.7-2.0) mmol/L Calcium (8.4-10.2) mg/dL Total Bilirubin (0.2-1.3) mg/dL AST (14-36) U/L ALT (9-52) U/L Alkaline Phosphatase (38-126) U/L Total Creatine Kinase (30-135) U/L CK-MB (CK-2) (0.0-2.4) ng/mL CK-MB (CK-2) Rel Index Troponin I (0.000-0.034) ng/mL Total Protein (6.3-8.2) g/dL Albumin (3.5-5.0) g/dL Stool Occult Blood (Negative) Blood Type A Positive Blood Type Recheck No Antibody Screen NEGATIVE Spec Expiration Date 07/30/2017 - 229907/27/17 Range/Units 20:07 WBC (3.8-10.6) k/uL RBC (3.80-5.40) m/uL Hgb (11.4-16.0) gm/dL Hct (34.0-46.0) % MCV (80.0-100.0) fL MCH (25.0-35.0) pg MCHC (31.0-37.0) g/dL RDW (11.5-15.5) % Plt Count (150-450) k/uL Neutrophils % % Lymphocytes % % Monocytes % % Eosinophils % % Basophils % % Neutrophils # (1.3-7.7) k/uL Lymphocytes # (1.0-4.8) k/uL Monocytes # (0-1.0) k/uL Eosinophils # (0-0.7) k/uL Basophils # (0-0.2) k/uL PT (9.0-12.0) sec INR (<1.2) APTT (22.0-30.0) sec Sodium (137-145) mmol/L Potassium (3.5-5.1) mmol/L Chloride (98-107) mmol/L Carbon Dioxide (22-30) mmol/L Anion Gap mmol/L BUN (7-17) mg/dL Creatinine (0.52-1.04) mg/dL Est GFR (CKD-EPI)AfAm (>60 ml/min/1.73 sqM) Est GFR (CKD-EPI)NonAf (>60 ml/min/1.73 sqM) Glucose (74-99) mg/dL Plasma Lactic Acid Erich (0.7-2.0) mmol/L Calcium (8.4-10.2) mg/dL Total Bilirubin (0.2-1.3) mg/dL AST (14-36) U/L ALT (9-52) U/L Alkaline Phosphatase (38-126) U/L Total Creatine Kinase (30-135) U/L CK-MB (CK-2) (0.0-2.4) ng/mL CK-MB (CK-2) Rel Index Troponin I (0.000-0.034) ng/mL Total Protein (6.3-8.2) g/dL Albumin (3.5-5.0) g/dL Stool Occult Blood Negative (Negative) Blood Type Blood Type Recheck Antibody Screen Spec Expiration Date - EKG Data -: EKG Interpreted by [facility] EKG shows normal: sinus rhythm, axis, intervals (normal), QRS complexes (Normal ), ST-T waves (normal) Rate: normal (Rate 67 bpm) Interpretation: normal EKG Disposition Clinical Impression: History of melena Disposition: HOME SELF-CARE Condition: Good Instructions: Gastrointestinal Bleeding (ED) Referrals: Trena Brink MD [Primary Care Provider] - 1-2 days Aretha Harris MD [STAFF PHYSICIAN] - 1-2 days
[2017-07-27 20:17] LABS: Basophils % (A) 0 %; Eosinophils # (A) 0.3 k/uL (0-0.7); Eosinophils % (A) 4 %; HCT 37.2 % (34.0-46.0); HGB 11.9 gm/dL (11.4-16.0); Lymphocytes # (A) 1.3 k/uL (1.0-4.8); Lymphocytes % (A) 19 %; MCH 29.3 pg (25.0-35.0); MCHC 32.1 g/dL (31.0-37.0); MCV 91.2 fL (80.0-100.0); Mean Platelet Volume 7.7; Monocytes # (A) 0.6 k/uL (0-1.0); Monocytes % (A) 8 %; Neutrophils # (A) 4.5 k/uL (1.3-7.7); Neutrophils % (A) 65 %; Platelet Count 191 k/uL (150-450); RBC 4.07 m/uL (3.80-5.40); RDW 13.8 % (11.5-15.5)
[2017-07-27 20:29] LABS: Calcium 9.8 mg/dL (8.4-10.2); Potassium 4.4 mmol/L (3.5-5.1); Total Bilirubin 0.6 mg/dL (0.2-1.3); Total Protein 6.5 g/dL (6.3-8.2)
[2017-07-27 20:32] LABS: INR 1.2 (<1.2); Partial Thromboplastin Time 23.2 sec (22.0-30.0); Prothrombin Time 11.6 sec (9.0-12.0)
[2017-07-27 20:38] LABS: Creatine Kinase 32 U/L (30-135)
[2017-07-27 20:51] LABS: Creatine Kinase MB <0.2 ng/mL (0.0-2.4); Troponin I <0.012 ng/mL (0.000-0.034)
[2017-07-27 21:33] VITALS: BP 133/70; PULSE 60; TEMP 98
== END 2017-07-27 21:33 | disposition home or self-care (01) ==
LOC: EC 17:48
DX: K92.1 Melena (principal); F03.90 Unspecified dementia, unspecified severity, without behavioral disturbance, psychotic disturbance, mood disturbance, and anxiety; I10 Essential (primary) hypertension; E03.9 Hypothyroidism, unspecified; D64.9 Anemia, unspecified; I85.10 Secondary esophageal varices without bleeding; Z90.49 Acquired absence of other specified parts of digestive tract; Z79.82 Long term (current) use of aspirin; Z79.899 Other long term (current) drug therapy; Z88.2 Allergy status to sulfonamides
CPT/HCPCS: 36415; 80053; 82272; 82550; 82553; 83605; 84484; 85025; 85610; 85730; 86850; 86900; 86901; 93005; 99285

== ENCOUNTER → 2017-09-03 | Outpatient (CLI) | payer MEDICARE ==
--- NOTE | 2017-09-03 10:59 | US ---
EXAMINATION TYPE: US liver DATE OF EXAM: 09/03/2017 COMPARISON: Limited abdominal ultrasound May 25, 2015. CLINICAL HISTORY: Cirrhosis of the liver K74.60. Cirrhosis, cholecystectomy EXAM MEASUREMENTS: Liver Length: 14.7 cm Gallbladder Wall: Surgically absent CBD: 0.3 cm Right Kidney: 8.7 x 3.4 x 4.5 cm Technical limitations due to large amount of overlying bowel content Pancreas: Tail obscured by overlying bowel gas Liver: limited evaluation, portal flow appears to be hepatopetal Gallbladder: Surgically absent Evidence for sonographic Mace's sign: no CBD: visualized portion appears wnl Right Kidney: Cortical thinning Visualized pancreas is homogeneous without mass or ductal dilatation, portions of distal body and yumiko l are obscured by overlying bowel gas. Visualized liver is heterogeneously hyperechoic without intrah epatic ductal dilatation. Evaluation for focal masses is suboptimal due to the heterogeneity. Gallbla dder is surgically absent. Some cortical thinning in right kidney is seen. Technologist tesfaye 1.0 cm lesion right kidney too small to definitively characterize. Monophasic hepatopedal flow noted in the main portal vein towards end of study. IMPRESSION: Heterogeneous hyperechoic appearance of liver may be product of underlying hepatocellular disease. No suspicious intrahepatic ductal dilatation is seen.
== END | disposition home or self-care (01) ==
LOC: RADUSWWP 08:12
PROVIDERS: ATTEND Internal Medicine Gastroenterology
DX: R93.2 Abnormal findings on diagnostic imaging of liver and biliary tract (principal)
CPT/HCPCS: 76705

== ENCOUNTER → 2018-11-11 | Outpatient (CLI) | payer MEDICARE ==
--- NOTE | 2018-11-11 10:45 | US ---
EXAMINATION TYPE: US liver DATE OF EXAM: 11/11/2018 COMPARISON: US CLINICAL HISTORY: K74.60 CIRRHOSIS OF LIVER, unspecified; gallbladder removed. EXAM MEASUREMENTS: Liver Length: 14.6 cm Gallbladder Wall: surgically removed CBD: 0.5 cm Right Kidney: 8.9 x 4.8 x 4.2 cm Portal Vein flow is to liver. Common Hepatic Artery Flow is to Liver. Middle Hepatic Vein ( only hepa tic vein seen) flow is to IVC. Pancreas: Slightly heterogeneous Liver: heterogeneous appearance Gallbladder: surgically removed Evidence for sonographic Mace's sign: no CBD: wnl Right Kidney: No hydronephrosis or masses seen Persistent small liver with heterogeneous hyperechoic appearance consistent with underlying cirrhosis . No new ascites seen. IMPRESSION: Persistent cirrhotic liver. No significant change from prior.
== END | disposition home or self-care (01) ==
LOC: RADUSWWP 08:15
PROVIDERS: ATTEND Internal Medicine Gastroenterology
DX: K74.60 Unspecified cirrhosis of liver (principal)
CPT/HCPCS: 76705